=== PATIENT | male | born 1980 | race Hispanic/Latino ===

== ENCOUNTER 2021-02-20 21:55 | Observation (INO) | payer BC ==
[~2021-02-20] VITALS: Ht 177.8 cm; Wt 129.6 kg
[2021-02-21 00:45] LABS: BASOPHILS % (AUTO) 0.7 % (0.0-5.0); EOSINOPHILS % (AUTO) 2.2 % (0.0-8.0); HEMATOCRIT 46.1 % (42-54); LYMPHOCYTES % (AUTO) 30.7 % (21.0-51.0); MEAN CORPUSCULAR HEMOGLOBIN 29.3 pg (27.0-33.0); MEAN CORPUSCULAR HGB CONC 34.3 g/dL (32.0-36.0); MEAN CORPUSCULAR VOLUME 85.5 fL (79-99); MONOCYTES % (AUTO) 9.1 % (3.0-13.0); NEUTROPHILS % (AUTO) 56.9 % (40.0-77.0); PLATELET COUNT (AUTO) 249 K/uL (130-400); RED BLOOD CELL COUNT(AUTO) 5.39 MIL/uL (4.50-6.20); RED CELL DISTRIBUTION WIDTH 13.3 % (11.0-15.5); WHITE BLOOD COUNT (AUTO) 9.4 K/uL (4.8-10.8)
[2021-02-21 01:00] LABS: ALBUMIN 4.2 g/dL (3.5-5.0); TOTAL PROTEIN, SERUM 8.2 g/dL (6.0-8.3)
[2021-02-21 01:19] LABS: BILIRUBIN,URINE Negative (NEGATIVE); COLOR,URINE Yellow (YELLOW); GLUCOSE, URINE (UA) Negative (NEGATIVE); KETONES,URINE Negative (NEGATIVE); LEUKOCYTE ESTERASE ,URINE Negative (NEGATIVE); NITRATE,URINE Negative (NEGATIVE); OCCULT BLOOD,URINE Negative (NEGATIVE); PH,URINE 5.5 (5.0-8.0); PROTEIN,URINE Negative (NEGATIVE)
[2021-02-21 01:21] LABS: APPEARANCE,URINE CLEAR (CLEAR)
[2021-02-21 01:33] LABS: BILIRUBIN,TOTAL 0.7 mg/dL (0.2-1.0)
[2021-02-21 01:47] LABS: AMPHET/METH SCREEN,URINE NEGATIVE (NEGATIVE); BARBITURATE SCREEN, URINE NEGATIVE (NEGATIVE); BENZODIAZEPINES SCREEN,URINE NEGATIVE (NEGATIVE); CANNABINOID SCREEN,URINE POSITIVE (NEGATIVE); COCAINE SCREEN,URINE NEGATIVE (NEGATIVE); OPIATE SCREEN,URINE NEGATIVE (NEGATIVE); PHENCYCLIDINE SCREEN,URINE NEGATIVE (NEGATIVE)
[2021-02-21] MEDS ORDERED: ORPHENADRINE CITRATE 30 MG/ML ML IV ONE (02:00)
[2021-02-21] MEDS ORDERED: KETOROLAC 30MG VIAL (30MG/ML) IV ONE (02:00)
[2021-02-21 02:34] LABS: RAPID PLASMA REAGIN REACTIVE (NONREACTIVE)
[2021-02-21 02:35] LABS: RAPID PLASMA REAGIN TITER REACTIVE >1:16 (NONREACTIVE)
[2021-02-21] MEDS ORDERED: ASPIRIN 325MG TAB PO ONE (04:00)
[2021-02-21] MEDS ORDERED: GUAIFENESIN-DM 200/20 MG 10 ML PO PRN (04:30)
[2021-02-21] MEDS ORDERED: NITROGLYCERIN 0.4 MG SL TAB SL PRN (04:30)
[2021-02-21] MEDS ORDERED: DiphenhydrAMINE HCL 50 MG/ML VIAL IV PRN (04:30)
[2021-02-21] MEDS ORDERED: LACTULOSE 20 GM/30 ML UDCUP PO PRN (04:30)
[2021-02-21] MEDS ORDERED: MAG/ALUM/SIMETH 30 ML UDCUP PO PRN (04:30)
[2021-02-21] MEDS ORDERED: ACETAMINOPHEN 325 MG TAB PO PRN (04:30)
[2021-02-21] MEDS ORDERED: HYDRALAZINE 20MG/ML VIAL IV PRN (04:30)
[2021-02-21] MEDS ORDERED: MORPHINE 2 MG SYG IV PRN (04:30)
[2021-02-21] MEDS ORDERED: MORPHINE 4 MG SYG IV PRN (04:30)
[2021-02-21] MEDS ORDERED: ONDANSETRON 4MG INJ IV PRN (04:30)
[2021-02-21 04:46] LABS: CHOLESTEROL 179 mg/dL (<200); HDL CHOLESTEROL 41 mg/dL (29-71); LDL DIRECT 104 mg/dL (0-99); TRIGLYCERIDES 150 mg/dL (30-200)
[2021-02-21 04:47] LABS: HEMOGLOBIN A1C 5.7 % (4.0-6.0)
[2021-02-21] MEDS ORDERED: KETOROLAC 30MG VIAL (30MG/ML) IV SCH (07:25)
[2021-02-21] MEDS: DOXYCYCLINE HYCLATE 100 MG TABLET PO SCH ×3 (08:15→20:15)
[2021-02-21] MEDS: FAMOTIDINE 20MG VIAL IV SCH ×2 (09:39→20:16)
[2021-02-21] MEDS: ENOXAPARIN SODIUM 40 MG/0.4 ML SYRINGE SQ SCH (09:39)
[2021-02-21] MEDS ORDERED: KETOROLAC 30MG VIAL (30MG/ML) IV PRN (12:00)
[2021-02-21 15:30] VITALS: BP 132/88
[2021-02-21 20:00] VITALS: BP 134/80
[2021-02-21] MEDS: ATORVASTATIN 20 MG TABLET PO SCH (20:15)
[2021-02-21] MEDS: METOPROLOL TARTRATE 25 MG TAB PO SCH (20:19)
[2021-02-22] VITALS: BP 102/63
[2021-02-22 04:00] VITALS: BP 110/69
[2021-02-22 06:09] LABS: BASOPHILS % (AUTO) 0.7 % (0.0-5.0); EOSINOPHILS % (AUTO) 3.1 % (0.0-8.0); LYMPHOCYTES % (AUTO) 28.3 % (21.0-51.0); MEAN CORPUSCULAR HEMOGLOBIN 28.7 pg (27.0-33.0); MEAN CORPUSCULAR HGB CONC 33.2 g/dL (32.0-36.0); MEAN CORPUSCULAR VOLUME 86.6 fL (79-99); MONOCYTES % (AUTO) 11.7 % (3.0-13.0); NEUTROPHILS % (AUTO) 55.9 % (40.0-77.0); PLATELET COUNT (AUTO) 230 K/uL (130-400); RED BLOOD CELL COUNT(AUTO) 5.08 MIL/uL (4.50-6.20); RED CELL DISTRIBUTION WIDTH 13.2 % (11.0-15.5); WHITE BLOOD COUNT (AUTO) 7.5 K/uL (4.8-10.8)
[2021-02-22 06:45] LABS: ALBUMIN 3.4 g/dL (3.5-5.0); BILIRUBIN,TOTAL 0.8 mg/dL (0.2-1.0); CREATININE 1.1 mg/dL (0.5-1.5); POTASSIUM 3.8 mmol/L (3.5-5.1)
[2021-02-22 08:00] VITALS: BP 126/75
[2021-02-22] MEDS: ENOXAPARIN SODIUM 40 MG/0.4 ML SYRINGE SQ SCH (09:11)
[2021-02-22] MEDS: FAMOTIDINE 20MG VIAL IV SCH ×2 (09:12→21:13)
[2021-02-22] MEDS: DOXYCYCLINE HYCLATE 100 MG TABLET PO SCH ×2 (09:12→21:14)
[2021-02-22] MEDS: ASPIRIN 81 MG EC TAB PO SCH (09:12)
[2021-02-22] MEDS: METOPROLOL TARTRATE 25 MG TAB PO SCH ×2 (09:12→21:14)
[2021-02-22 11:59] VITALS: BP 132/92
[2021-02-22 16:00] VITALS: BP 123/67
[2021-02-22 20:04] VITALS: BP 138/87
[2021-02-22] MEDS: ATORVASTATIN 20 MG TABLET PO SCH (21:14)
[2021-02-23 00:36] VITALS: BP 116/64
[2021-02-23 04:00] VITALS: BP 124/78
[2021-02-23 08:00] VITALS: BP 125/76
[2021-02-23] MEDS: DOXYCYCLINE HYCLATE 100 MG TABLET PO SCH (08:45)
[2021-02-23] MEDS: METOPROLOL TARTRATE 25 MG TAB PO SCH (08:45)
[2021-02-23] MEDS: ASPIRIN 81 MG EC TAB PO SCH (08:45)
[2021-02-23] MEDS: FAMOTIDINE 20MG VIAL IV SCH (08:46)
[2021-02-23] MEDS: ENOXAPARIN SODIUM 40 MG/0.4 ML SYRINGE SQ SCH (08:48)
[2021-02-23 12:00] VITALS: BP 139/67
[2021-02-23 16:00] VITALS: BP 131/76
[2021-02-23] MEDS ORDERED: ATOR20TA65 PO (16:10)
[2021-02-23] MEDS ORDERED: METO25 PO (16:10)
[2021-02-23] MEDS ORDERED: AEC81 PO (16:10)
[2021-02-23] MEDS ORDERED: FAMO20TA8 PO (17:14)
== END 2021-02-23 18:51 | disposition home or self-care (01) ==
LOC: EDH 21:55 → INTOOBSV 02-21 04:09 → EDHIP 02-21 04:09 → 3BH 02-21 15:28
PROVIDERS: ADMIT Hospitalist; ATTEND Hospitalist
DX: R07.89 Other chest pain (principal); Z20.822 Contact with and (suspected) exposure to COVID-19; R79.89 Other specified abnormal findings of blood chemistry; M54.9 Dorsalgia, unspecified; A53.0 Latent syphilis, unspecified as early or late; M79.18 Myalgia, other site; E66.01 Morbid (severe) obesity due to excess calories; R53.1 Weakness; R53.81 Other malaise; F12.90 Cannabis use, unspecified, uncomplicated; Z87.891 Personal history of nicotine dependence; Z72.51 High risk heterosexual behavior; Z79.899 Other long term (current) drug therapy
CPT/HCPCS: 36415 ×2; 70450; 71045; 80053 ×2; 80061; 80305; 81003; 82550; 83036; 83880; 84484 ×4; 85025 ×2; 85378; 85651; 86140; 86592; 86701; 86780; 87390; 87635; 87804 ×2; 93005 ×2; 93306; 93356; 96372 ×3; 96374; 96375; 96376 ×3; 99285; G0378 ×3; J1650 ×3; J1885 ×2; J2360; J3490 ×5

== ENCOUNTER 2023-03-31 18:37 | Emergency (ER) | payer BC ==
[~2023-03-31] VITALS: Ht 177.8 cm; Wt 131.5 kg
[~2023-03-31 18:37] MED LIST: AEC81 PO; ATOR20TA65 PO; FAMO20TA8 PO; METO25 PO
[2023-03-31 20:13] LABS: BASOPHILS # (AUTO) 0.06 K/uL (0.00-0.20); BASOPHILS % (AUTO) 0.7 % (0.0-5.0); EOSINOPHILS # (AUTO) 0.16 K/uL (0.00-0.70); EOSINOPHILS % (AUTO) 1.8 % (0.0-8.0); HEMATOCRIT 43.6 % (42-54); IMMATURE GRANULOCYTE ABSOLUTE 0.02 K/uL (0-1); LYMPHOCYTES # (AUTO) 2.4 K/uL (1.0-4.8); LYMPHOCYTES % (AUTO) 27.4 % (21.0-51.0); MEAN CORPUSCULAR HEMOGLOBIN 29.6 pg (27.0-33.0); MEAN CORPUSCULAR HGB CONC 34.2 g/dL (32.0-36.0); MEAN CORPUSCULAR VOLUME 86.5 fL (79-99); MONOCYTES # (AUTO) 0.8 K/uL (0.1-1.0); NEUTROPHILS # (AUTO) 5.3 K/uL (1.8-7.7); NEUTROPHILS % (AUTO) 60.9 % (40.0-77.0); PLATELET COUNT (AUTO) 251 K/uL (130-400); RED BLOOD CELL COUNT(AUTO) 5.04 MIL/uL (4.50-6.20); RED CELL DISTRIBUTION WIDTH 13.2 % (11.0-15.5); WHITE BLOOD COUNT (AUTO) 8.7 K/uL (4.8-10.8)
[2023-03-31 20:24] LABS: INR <= 0.93 (0.85-1.15); PROTHROMBIN TIME 10.3 SEC (9.6-11.6)
[2023-03-31 20:25] LABS: POTASSIUM 3.5 mmol/L (3.5-5.1)
[2023-03-31 20:26] LABS: PARTIAL THROMBOPLASTIN TIME 29.5 SEC (26.3-35.5)
[2023-03-31 20:32] LABS: ALBUMIN 3.7 g/dL (3.5-5.0); BILIRUBIN,TOTAL 0.6 mg/dL (0.2-1.0); TOTAL PROTEIN, SERUM 7.9 g/dL (6.0-8.3)
[2023-03-31 20:37] LABS: B-TYPE NATRIURETIC PEPTIDE < 5 pg/mL (0-100)
[2023-03-31 20:43] LABS: D-DIMER 500 ng/mL (0-500)
[2023-03-31] MEDS ORDERED: CYCL-309 PO (21:29)
[2023-03-31] MEDS ORDERED: IBUPROFEN 600 MG TABLET ONE (21:29)
[2023-03-31] MEDS ORDERED: MELO10CA3 PO (21:29)
[2023-03-31 21:30] VITALS: PULSE 88
[2023-03-31 21:51] LABS: APPEARANCE,URINE CLEAR (CLEAR); BILIRUBIN,URINE NEGATIVE (NEGATIVE); COLOR,URINE LIGHT-YELLOW (YELLOW); GLUCOSE, URINE (UA) NEGATIVE (NEGATIVE); KETONES,URINE NEGATIVE (NEGATIVE); LEUKOCYTE ESTERASE ,URINE NEGATIVE Leu/uL (NEGATIVE); NITRATE,URINE NEGATIVE (NEGATIVE); OCCULT BLOOD,URINE NEGATIVE (NEGATIVE); PROTEIN,URINE NEGATIVE (NEGATIVE); UROBILINOGEN,URINE 0.2 mg/dL (0.2-1.0)
[2023-03-31 21:52] LABS: ADD UA MICROSCOPIC YES; MUCUS,URINE RARE LPF (None Seen); RBC,URINE 0-1 /HPF (0-1)
[2023-03-31 21:59] LABS: AMPHET/METH SCREEN,URINE NEGATIVE (NEGATIVE); BARBITURATE SCREEN, URINE NEGATIVE (NEGATIVE); BENZODIAZEPINES SCREEN,URINE NEGATIVE (NEGATIVE); CANNABINOID SCREEN,URINE POSITIVE (NEGATIVE); COCAINE SCREEN,URINE NEGATIVE (NEGATIVE); OPIATE SCREEN,URINE NEGATIVE (NEGATIVE); PHENCYCLIDINE SCREEN,URINE NEGATIVE (NEGATIVE)
[2023-03-31 22:45] VITALS: BP 133/72; RESP 18; O2SAT 99
== END 2023-03-31 22:37 | disposition home or self-care (01) ==
LOC: EDH 18:37
DX: R07.89 Other chest pain (principal); Z79.82 Long term (current) use of aspirin
CPT/HCPCS: 36415; 71045; 80053; 80305; 81001; 83880; 84484; 85025; 85378; 85610; 85730; 93005

== ENCOUNTER → 2023-04-16 | Outpatient (CLI) | payer BC ==
[~2023-04-16] MED LIST changes: +CYCL-309 PO; +MELO10CA3 PO
[2023-04-16 12:19] LABS: ALBUMIN 3.3 g/dL (3.5-5.0); BILIRUBIN,TOTAL 0.2 mg/dL (0.2-1.0); POTASSIUM 4.2 mmol/L (3.5-5.1); TOTAL PROTEIN, SERUM 7.2 g/dL (6.0-8.3)
== END | disposition home or self-care (01) ==
LOC: LAB 08:11
PROVIDERS: ATTEND Student in an Organized Health Care Education/Training Program
DX: R07.9 Chest pain, unspecified (principal); E78.5 Hyperlipidemia, unspecified
CPT/HCPCS: 36415; 80053; 80061

== ENCOUNTER → 2023-04-22 | Outpatient (CLI) | payer BC ==
[~2023-04-22] MED LIST changes: +IOHEXOL 350 MG/ML 100ML INFUS..BTL IV ONE; +METOPROLOL TARTRATE 1 MG/ML 5ML VIAL IV ONE
== END | disposition home or self-care (01) ==
LOC: RAH 10:34
PROVIDERS: ATTEND Student in an Organized Health Care Education/Training Program
DX: R07.9 Chest pain, unspecified (principal); M47.815 Spondylosis without myelopathy or radiculopathy, thoracolumbar region
CPT/HCPCS: 75574; J3490; Q9967

== ENCOUNTER 2024-01-11 03:59 | Emergency (ER) | payer BC ==
[~2024-01-11] VITALS: Ht 177.8 cm; Wt 135.6 kg
[~2024-01-11 03:59] MED LIST changes: -IOHEXOL 350 MG/ML 100ML INFUS..BTL IV ONE; -METOPROLOL TARTRATE 1 MG/ML 5ML VIAL IV ONE
[2024-01-11] MEDS: morPHINE 4 MG SYG IVP ONE (04:13)
[2024-01-11] MEDS: ASPIRIN 81MG CHEW TAB PO ONE (04:13)
[2024-01-11] MEDS: LACTATED RINGERS 1000ML 1,000 ML IV ONE (04:14)
[2024-01-11] MEDS: NITROGLYCERIN 1GM OINT 1 INCH/1GM TD ONE (04:14)
[2024-01-11 04:55] LABS: BASOPHILS # (AUTO) 0.05 K/uL (0.00-0.20); BASOPHILS % (AUTO) 0.5 % (0.0-5.0); EOSINOPHILS # (AUTO) 0.23 K/uL (0.00-0.70); EOSINOPHILS % (AUTO) 2.1 % (0.0-8.0); HEMATOCRIT 43.3 % (42-54); IMMATURE GRANULOCYTE ABSOLUTE 0.04 K/uL (0-1); LYMPHOCYTES # (AUTO) 2.2 K/uL (1.0-4.8); LYMPHOCYTES % (AUTO) 19.6 % (21.0-51.0); MEAN CORPUSCULAR HEMOGLOBIN 29.5 pg (27.0-33.0); MEAN CORPUSCULAR HGB CONC 33.9 g/dL (32.0-36.0); MEAN CORPUSCULAR VOLUME 86.8 fL (79-99); MONOCYTES # (AUTO) 0.9 K/uL (0.1-1.0); MONOCYTES % (AUTO) 7.8 % (3.0-13.0); NEUTROPHILS # (AUTO) 7.6 K/uL (1.8-7.7); NEUTROPHILS % (AUTO) 69.6 % (40.0-77.0); PLATELET COUNT (AUTO) 279 K/uL (130-400); RED BLOOD CELL COUNT(AUTO) 4.99 MIL/uL (4.50-6.20); RED CELL DISTRIBUTION WIDTH 13.1 % (11.0-15.5)
[2024-01-11 05:06] LABS: CREATININE 0.9 mg/dL (0.5-1.3); POTASSIUM 3.8 mmol/L (3.5-5.1)
[2024-01-11 05:15] LABS: B-TYPE NATRIURETIC PEPTIDE 13 pg/mL (0-100)
[2024-01-11 05:23] LABS: APPEARANCE,URINE CLEAR (CLEAR); BILIRUBIN,URINE NEGATIVE (NEGATIVE); COLOR,URINE COLORLESS (YELLOW); GLUCOSE, URINE (UA) NEGATIVE (NEGATIVE); KETONES,URINE NEGATIVE (NEGATIVE); LEUKOCYTE ESTERASE ,URINE NEGATIVE Leu/uL (NEGATIVE); NITRATE,URINE NEGATIVE (NEGATIVE); OCCULT BLOOD,URINE NEGATIVE (NEGATIVE); PH,URINE 6.5 (5.0-8.0); PROTEIN,URINE NEGATIVE (NEGATIVE); UROBILINOGEN,URINE 0.2 mg/dL (0.2-1.0)
[2024-01-11 05:24] LABS: ADD UA MICROSCOPIC NO
[2024-01-11] MEDS: MAG/ALUM/SIMETH 30 ML UDCUP PO ONE (06:12)
[2024-01-11] MEDS: DICYCLOMINE HCL 10 MG/5 ML ML PO ONE (06:12)
[2024-01-11] MEDS: LIDOCAINE HCL 2% VISCOUS 15 ML UDCUP PO ONE (06:12)
[2024-01-11] MEDS ORDERED: SUCR1TAB PO (06:51)
[2024-01-11] MEDS ORDERED: PANT40TA55 PO (06:51)
--- NOTE | 2024-01-11 06:51 | ERN ---
General Chief Complaint: Chest Pain Stated Complaint: CHEST PAIN Time Seen by MD: 04:01 History of Present Illness Initial Comments Mr. Franklin is a very pleasant 43-year-old male significant past medical history of hyperlipidemia essential hypertension and morbid obesity who presents today with a chief complaint of chest pain. Patient reports that his chest pain is primarily when he he is lying flat. He reports chest pain primarily at night. Reports chest pain radiates to his left pack. He also has a associated increased burping and dry raspy voice. Patient does not take any reflux medicine Allergies: Coded Allergies: No Known Drug Allergies (Unverified Allergy, Unknown, 02/20/21) Home Meds Active Scripts Cyclobenzaprine HCl (Cyclobenzaprine HCl) 10 Mg Tablet, 10 MG PO TIDP PRN for PAIN, #30 TAB Prov:ASHA AVERY MD 03/31/23 Meloxicam, Submicronized (Meloxicam) 10 Mg Capsule, 10 MG PO DAILY, #30 CAP Prov:ASHA AVERY MD 03/31/23 Famotidine (Famotidine) 20 Mg Tablet, 20 MG PO DAILY, #30 TAB Prov:GHULAM ALVA I [facility] 02/23/21 Metoprolol Tartrate (Lopressor) 25 Mg Tab, 12.5 MG PO BID, #60 TAB Prov:GHULAM ALVA I [facility] 02/23/21 Atorvastatin Calcium (Atorvastatin Calcium) 20 Mg Tablet, 20 MG PO HS, #60 TAB Prov:GHULAM ALVA I [facility] 02/23/21 Aspirin (ASPIRIN 81 MG ECTAB) 81 Mg Ectab, 81 MG PO DAILY, #14 TAB.EC Prov:GHULAM ALVA I [facility] 02/23/21 Past Medical History Past Medical History: Depression, Hypertension, Other Medical History Other: SYPHILIS Past Surgical History: None Social History Social History: Negative ROS Dictation Constitutional: Negative for fever,chills, and weight loss Eyes: Negative for injury, pain,redness, and discharge ENT: Negative for injury,pain or swelling Cardiovascular: Negative for chest pain, palpitations, and edema Respiratory: Negative for shortness of breath, cough, and wheezing, Abdomen/GI: Positive for upper abdominal pain, nausea, changes in voice Back: Negative for injury and pain : Negative for injury, bleeding and discharge MS/Extremity: Negative for injury and deformity Skin: Negative for rash, and discoloration Neuro: Negative for headache, weakness, numbness, tingling, and seizure Psych: Negative for suicide ideation, homicidal ideation, and hallucinations Physical Exam Physical Exam Dictation General: awake, alert Head/Face: Normocephalic Eyes: PERRL, EOMI, v Neck: Trachea midline, supple, no nuchal rigidity Cardiovascular: RRR, normal S1/S2, No MRGs, no JVD Respiratory: CTAB, no respiratory distress, No rales or wheezes Abdomen: Pain in the epigastric region Skin: Warm, dry, normal turgor, no rash MS/Extremity: Pulses equal, no cyanosis Neuro: COAx4, GCS 15, strength 5/5, CN 2-12 intact Results Laboratory and Microbiology Lab and Micro Result Laboratory Tests Test 01/11/24 04:20 01/11/24 05:14 White Blood Count 11.0 K/uL (4.8-10.8) H Red Blood Count 4.99 MIL/uL (4.50-6.20) Hemoglobin 14.7 g/dL (14.0-18.0) Hematocrit 43.3 % (42-54) Mean Corpuscular Volume 86.8 fL (79-99) Mean Corpuscular Hemoglobin 29.5 pg (27.0-33.0) Mean Corpuscular Hemoglobin Concent 33.9 g/dL (32.0-36.0) Red Cell Distribution Width 13.1 % (11.0-15.5) Platelet Count 279 K/uL (130-400) Mean Platelet Volume 9.7 fL (7.5-10.5) Immature Granulocyte % (Auto) 0.4 % (0-1) Neutrophils (%) (Auto) 69.6 % (40.0-77.0) Lymphocytes (%) (Auto) 19.6 % (21.0-51.0) L Monocytes (%) (Auto) 7.8 % (3.0-13.0) Eosinophils (%) (Auto) 2.1 % (0.0-8.0) Basophils (%) (Auto) 0.5 % (0.0-5.0) Neutrophils # (Auto) 7.6 K/uL (1.8-7.7) Lymphocytes # (Auto) 2.2 K/uL (1.0-4.8) Monocytes # (Auto) 0.9 K/uL (0.1-1.0) Eosinophils # (Auto) 0.23 K/uL (0.00-0.70) Basophils # (Auto) 0.05 K/uL (0.00-0.20) Absolute Immature Granulocyte (auto 0.04 K/uL (0-1) Nucleated Red Blood Cells 0.0 % (0.0-0.19) Urine Color COLORLESS (YELLOW) Urine Appearance CLEAR (CLEAR) Urine pH 6.5 (5.0-8.0) Urine Specific [place] 1.007 (1.001-1.031) Urine Protein NEGATIVE mg/dL (NEGATIVE) Urine Glucose (UA) NEGATIVE mg/dL (NEGATIVE) Urine Ketones NEGATIVE mg/dL (NEGATIVE) Urine Occult Blood NEGATIVE (NEGATIVE) Urine Nitrate NEGATIVE (NEGATIVE) Urine Bilirubin NEGATIVE mg/dL (NEGATIVE) Urine Urobilinogen 0.2 mg/dL (0.2-1.0) Urine Leukocyte Esterase NEGATIVE [place]/uL Sodium Level 135 mmol/L (136-145) L Potassium Level 3.8 mmol/L (3.5-5.1) Chloride Level 101 mmol/L (101-111) Carbon Dioxide Level 28 mmol/L (21-32) Blood Urea Nitrogen 13 mg/dL (7-18) Creatinine 0.9 mg/dL (0.5-1.3) Glomerular Filtration Rate Calc 110 mL/min (>90) Random Glucose 97 mg/dL (70-105) Total Calcium 9.6 mg/dL (8.5-10.1) Magnesium Level 2.00 mg/dL (1.80-2.40) Troponin I High Sensitivity 64 ng/L (4-75) B-Type Natriuretic Peptide 13 pg/mL (0-100) Troponin I < 0.05 ng/mL (0.00-0.05) MDM Patient's imaging and labs are unremarkable for any cardiac related chest pain. Patient does appear to have some reflux disease that has improved significantly with GI cocktail. Patient will be given Carafate and Protonix to help with the his reflux on an ongoing basis. MDM: Differential diagnosis: Noncardiac chest pain Rationale: Tests considered and ordered secondary to shared decision making include: Previous outside records reviewed: Old ER visits. Risk of complication and/or morbidity or mortality of patient management: None Medications-Per medication reconciliation Need for hospitalization: Patient does not meet criteria for hospitalization. Need for emergency major/minor surgery: No There are no social concerns with this patient. Prescription drug management Prescriptions will include symptomatic care Patient's prior external medical records from other ER visits were reviewed by me as indicated. Prior testing and results from previous visits were reviewed. Prior tests were taken into account with medical decision making and resource utilization, independent historian/historians were used to obtain complete medical history. I independently interpreted the test that were performed, results were reviewed by me and considered findings on radiology if ordered. Medical management and examination interpretation discussions were had by me with other qualified healthcare professionals as indicated for the patient's care. ED Course Orders Procedure Category Date Status Time Cbc With Differential LAB 01/11/24 Complete 04:01 B-Type Natriuretic LAB 01/11/24 Complete Peptide 04:01 Chest 1vw RAD 01/11/24 Taken 04:01 12 Lead Ekg Tracing- EKG 01/11/24 Logged Technical 04:01 Lactated Ringers PHA 01/11/24 Complete 1000ml (Lactated 04:30 Aspirin 81mg Chew Tab PHA 01/11/24 Complete (Aspirin 81mg Chew 04:30 Nitroglycerin 1gm PHA 01/11/24 Complete Oint (Nitroglycerin 1g 04:30 Morphine 4mg Syg PHA 01/11/24 Complete (Morphine 4mg Syg) 04:30 Magnesium LAB 01/11/24 Complete 04:01 Troponin I High LAB 01/11/24 Complete Sensitivity 04:01 Troponin Poc Order LAB 01/11/24 Complete Only 04:01 Bedside Troponin-I LAB.ER 01/11/24 In Process (Poc) 04:01 Basic Metabolic Panel LAB 01/11/24 Complete 04:01 Lidocaine Hcl 2% PHA 01/11/24 Complete Viscous (Lidocaine Hcl 05:00 Mag/Alum/Simeth 30ml PHA 01/11/24 Complete (Maalox Plus 30ml) 05:00 Dicyclomine Hcl PHA 01/11/24 Complete (Bentyl 10mg/5ml 05:00 Urinalysis Profile LAB 01/11/24 Complete 05:06 Current Medications Medications (Trade) Dose Ordered Sig/Paresh Route PRN Reason Start Time Stop Time Status Last Admin Dose Admin Al Hydroxide/Mg Hydroxide (MAALox PLUS 30ML) 30 ml ONCE ONCE PO 01/11/24 05:00 01/11/24 05:02 DC 01/11/24 06:12 Aspirin (Aspirin 81mg Chew Tab) 81 mg ONCE ONCE PO 01/11/24 04:30 01/11/24 04:31 DC 01/11/24 04:13 Dicyclomine HCl (Bentyl 10mg/5ml Syrup) 10 mg ONCE ONCE PO 01/11/24 05:00 01/11/24 05:02 DC 01/11/24 06:12 Lactated Ringer's 1,000 ml @ 0 mls/hr ONCE ONCE IV 01/11/24 04:30 01/11/24 04:31 DC 01/11/24 04:14 Lidocaine HCl (Lidocaine HCl 2% Viscous) 10 ml ONCE ONCE PO 01/11/24 05:00 01/11/24 05:02 DC 01/11/24 06:12 Morphine Sulfate (morPHINE 4MG SYG) 4 mg ONCE ONCE IVP 01/11/24 04:30 01/11/24 04:31 DC 01/11/24 04:13 Nitroglycerin (Nitroglycerin 1gm Oint) 1 inch ONCE ONCE TD 01/11/24 04:30 01/11/24 04:31 DC 01/11/24 04:14 Vital Signs Date Time Temp Pulse Resp B/P (MAP) Pulse Ox O2 Delivery O2 Flow Rate FiO2 01/11/24 06:00 98.4 77 18 125/75 95 Room Air* 0 21 01/11/24 04:52 98.4 73 18 133/83 100 Room Air* 0 21 01/11/24 04:04 97.7 73 16 136/90 95 Room Air 0 DX & DISP Disposition: Discharge Departure Impression: Primary Impression: GERD (gastroesophageal reflux disease) Additional Impression: Non-cardiac chest pain Condition: Stable Scripts Pantoprazole Sodium (Protonix) 40 Mg Ectab 1 TAB PO DAILY for 30 Days, #30 TAB 2 Refills Prov: RU GALLAGHER MD 01/11/24 Sucralfate (Carafate) 1 Gram Tablet 1 TAB PO QID for 30 Days, #120 TAB 0 Refills Prov: RU GALLAGHER MD 01/11/24 Additional Instructions: Please follow up with your primary care physician in the next 1-7 days for continuity of care. Please ask for referral to [facility]. Please avoid spicy foods. Please take your medications as prescribed for potential reflux. Referrals: MIGUEL ROJAS (PCP) RU GALLAGHER MD Jan 11, 2024 06:51
--- NOTE | 2024-01-11 06:51 | EKG ---
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
[2024-01-11 07:16] VITALS: BP 141/82; PULSE 77; RESP 18; TEMP 98.4; O2SAT 95
--- NOTE | 2024-01-11 08:23 | HMCIMG ---
CHEST 1VW HISTORY: Shortness of breath COMPARISON: 03/31/2023 FINDINGS: A frontal projection of the chest was obtained. No acute pulmonary infiltrates is seen. The heart is normal in size. Prominent interstitial markings are seen. No evidence of aortic calcification is seen. IMPRESSION: 1. No acute pulmonary infiltrate is seen.
== END 2024-01-11 07:24 | disposition home or self-care (01) ==
LOC: EDH 03:59
DX: K21.9 Gastro-esophageal reflux disease without esophagitis (principal); R07.89 Other chest pain; E66.01 Morbid (severe) obesity due to excess calories; I10 Essential (primary) hypertension; Z79.1 Long term (current) use of non-steroidal anti-inflammatories (NSAID); Z79.82 Long term (current) use of aspirin
CPT/HCPCS: 99284; 96374; 71045; 83735; 84484 ×2; 80048; 83880; 85025; 81003; 36415; 93005; J7120; J2270

== ENCOUNTER 2024-02-07 18:20 | Emergency (ER) | payer BC ==
[~2024-02-07] VITALS: Ht 177.8 cm; Wt 131.5 kg
[~2024-02-07 18:20] MED LIST changes: +PANT40TA55 PO; +SUCR1TAB PO
[2024-02-07 18:23] VITALS: BP 153/107; PULSE 93; RESP 16; TEMP 98
--- NOTE | 2024-02-07 18:49 | ERN ---
ED Note History of Present Illness Stated Complaint: CP Chief Complaint: Chest Pain Time Seen by MD: 18:27 Time Seen by Midlevel: 18:27 Dictation: The Patient is a 43-year-old male with a history of rheumatoid arthritis, anxiety, hypertension who presents to the emergency department with complaints of chest pressure onset two days ago. Patient reports he has been having these symptoms on and off for a year now. Reports pain is worse when lying down or bending down and with movement. Patient denies any chest trauma. Denies any nausea or vomiting, abdominal pain. Patient also reported to having sensation of numbness to the mouth today. Denies any alcohol use or drug use Allergies: Coded Allergies: No Known Drug Allergies (Unverified Allergy, Unknown, 02/20/21) Home Meds Active Scripts Pantoprazole Sodium (Protonix) 40 Mg Ectab, 1 TAB PO DAILY for 30 Days, #30 TAB 2 Refills Prov:RU GALLAGHER MD 01/11/24 Sucralfate (Carafate) 1 Gram Tablet, 1 TAB PO QID for 30 Days, #120 TAB 0 Refills Prov:RU GALLAGHER MD 01/11/24 Cyclobenzaprine HCl (Cyclobenzaprine HCl) 10 Mg Tablet, 10 MG PO TIDP PRN for PAIN, #30 TAB Prov:ASHA AVERY MD 03/31/23 Meloxicam, Submicronized (Meloxicam) 10 Mg Capsule, 10 MG PO DAILY, #30 CAP Prov:ASHA AVERY MD 03/31/23 Famotidine (Famotidine) 20 Mg Tablet, 20 MG PO DAILY, #30 TAB Prov:GHULAM ALVAP 02/23/21 Metoprolol Tartrate (Lopressor) 25 Mg Tab, 12.5 MG PO BID, #60 TAB Prov:GHULAM ALVAP 02/23/21 Atorvastatin Calcium (Atorvastatin Calcium) 20 Mg Tablet, 20 MG PO HS, #60 TAB Prov:GHULAM ALVAP 02/23/21 Aspirin (ASPIRIN 81 MG ECTAB) 81 Mg Ectab, 81 MG PO DAILY, #14 TAB.EC Prov:GHULAM ALVAP 02/23/21 Past Medical History Past Medical History: Anxiety, Depression, Hypertension, Other Additional Past Medical Hx: SYPHILIS Surgical History: None Social History: Negative RN Note Reviewed/Agreed w/PFSH: Yes Review of System Dictation Constitutional: Negative for fever,chills, and weight loss Eyes: Negative for injury, pain,redness, and discharge ENT: Negative for injury,pain or swelling Cardiovascular: Negative for palpitations, and edema positive for chest pain Respiratory: Negative for cough, and wheezing, positive for shortness of breath Abdomen/GI: Negative for abdominal pain, nausea, vomiting, diarrhea, and consti pation Back: Negative for injury and pain : Negative for injury, bleeding and discharge MS/Extremity: Negative for injury and deformity Skin: Negative for rash, and discoloration Neuro: Negative for headache, weakness, numbness, tingling, and seizure Psych: Negative for suicide ideation, homicidal ideation, and hallucinations Initial Vital Sign VS Vital Signs Date Time Temp Pulse Resp B/P (MAP) Pulse Ox O2 Delivery O2 Flow Rate FiO2 02/07/24 18:23 98.1 93 16 153/107 98 Room Air 0 Physical Exam Dictation Vital Signs reviewed General Appearance: Alert, oriented x 3, no acute distress, well developed, nourished. Head and Face: non-traumatic. Eyes: PERRL, pink conjunctivas, eyelid no trauma, anterior chamber with arcus senilis. Ears: Pinnas intact and no signs of trauma or erythema ear canals clear and no discharge TM no erythema Nose: No discharge, no bleeding. Oropharynx: Mouth normal, tongue pink. pharynx clear,no erythema, tonsils no exudates, no abscesses noted, mucous membrane moist Neck: Supple, non-tender, no thyromegaly, no masses, no JVD, no bruits Breast:Deferred Chest: Tenderness with palpation, no crepitus, no paradoxical movement, no retractions Lungs:Clear, well-ventilated, symmetric, no rales, no wheezing, no rhonchi, no stridor, good breath sounds bilaterally Heart: Regular rate, regular rhythm, no murmur, no gallops Vascular: no peripheral edema, Abdomen: Soft, positive bowel sounds, nondistended, no guarding, nontender, no rebound, no masses no hepatomegaly, no splenomegaly, no Saavedra's sign, no hernias. Rectal: Deferred Genital: Deferred Neurological: Normal speech, motor function intact, sensory function intact , no slurred speech, no facial droop, upper extremities equal and strength, lower extremities equal and strength Musculoskeletal: Neck nontender, full range of motion, back nontender, full range of motion, Extremities: nontender, full range of motion Skin: Color pink, dry, no turgor, no rash, no lacerations, no abrasions, no contusions. Lymphatic: Deferred Results (Laboratory/Radiology) Laboratory/Radiology Laboratory Tests Test 02/07/24 19:07 02/07/24 19:28 02/07/24 20:51 02/07/24 22:54 White Blood Count 9.5 K/uL (4.8-10.8) Red Blood Count 4.99 MIL/uL (4.50-6.20) Hemoglobin 14.9 g/dL (14.0-18.0) Hematocrit 44.2 % (42-54) Mean Corpuscular Volume 88.6 fL (79-99) Mean Corpuscular Hemoglobin 29.9 pg (27.0-33.0) Mean Corpuscular Hemoglobin Concent 33.7 g/dL (32.0-36.0) Red Cell Distribution Width 14.0 % (11.0-15.5) Platelet Count 256 K/uL (130-400) Mean Platelet Volume 9.7 fL (7.5-10.5) Immature Granulocyte % (Auto) 0.3 % (0-1) Neutrophils (%) (Auto) 64.0 % (40.0-77.0) Lymphocytes (%) (Auto) 25.1 % (21.0-51.0) Monocytes (%) (Auto) 7.4 % (3.0-13.0) Eosinophils (%) (Auto) 2.6 % (0.0-8.0) Basophils (%) (Auto) 0.6 % (0.0-5.0) Neutrophils # (Auto) 6.1 K/uL (1.8-7.7) Lymphocytes # (Auto) 2.4 K/uL (1.0-4.8) Monocytes # (Auto) 0.7 K/uL (0.1-1.0) Eosinophils # (Auto) 0.25 K/uL (0.00-0.70) Basophils # (Auto) 0.06 K/uL (0.00-0.20) Absolute Immature Granulocyte (auto 0.03 K/uL (0-1) Nucleated Red Blood Cells 0.0 % (0.0-0.19) Sodium Level 139 mmol/L (136-145) Potassium Level 3.8 mmol/L (3.5-5.1) Chloride Level 102 mmol/L (101-111) Carbon Dioxide Level 32 mmol/L (21-32) Blood Urea Nitrogen 16 mg/dL (7-18) Creatinine 1.1 mg/dL (0.5-1.3) Glomerular Filtration Rate Calc 86 mL/min (>90) Random Glucose 94 mg/dL (70-105) Total Calcium 9.3 mg/dL (8.5-10.1) Total Bilirubin 0.3 mg/dL (0.2-1.0) Direct Bilirubin 0.1 mg/dL (0.0-0.3) Aspartate Amino Transf (AST/SGOT) 16 U/L (10-37) Alanine Aminotransferase (ALT/SGPT) 27 U/L (12-78) Alkaline Phosphatase 102 U/L (50-136) Total Creatine Kinase 146 U/L (21-232) Troponin I High Sensitivity 41 ng/L (4-75) 41 ng/L (4-75) B-Type Natriuretic Peptide 16 pg/mL (0-100) Total Protein 8.0 g/dL (6.0-8.3) Albumin 3.6 g/dL (3.5-5.0) Lipase 50 U/L (16-77) Troponin I < 0.05 ng/mL (0.00-0.05) Urine Color LIGHT-YELLOW (YELLOW) Urine Appearance CLEAR (CLEAR) Urine pH 6.5 (5.0-8.0) Urine Specific [place] 1.018 (1.001-1.031) Urine Protein NEGATIVE mg/dL (NEGATIVE) Urine Glucose (UA) NEGATIVE mg/dL (NEGATIVE) Urine Ketones NEGATIVE mg/dL (NEGATIVE) Urine Occult Blood NEGATIVE (NEGATIVE) Urine Nitrate NEGATIVE (NEGATIVE) Urine Bilirubin NEGATIVE mg/dL (NEGATIVE) Urine Urobilinogen 0.2 mg/dL (0.2-1.0) Urine Leukocyte Esterase NEGATIVE Chelsey/uL Urine Opiates Screen NEGATIVE (NEGATIVE) Urine Barbiturates Screen NEGATIVE (NEGATIVE) Urine Phencyclidine Screen NEGATIVE (NEGATIVE) Urine Amphetamines Screen NEGATIVE (NEGATIVE) Urine Benzodiazepines Screen NEGATIVE (NEGATIVE) Urine Cocaine Screen NEGATIVE (NEGATIVE) Urine Marijuana (THC) Screen NEGATIVE (NEGATIVE) REASON: CHEST PAIN ORDERING PHYSICIAN: DAHIANA VASQUEZ PSYCHIATRIC NURSING AIDE PROCEDURE: CXR1VW - CHEST 1VW CHEST 1VW HISTORY: Chest pain COMPARISON: January 11, 2024 FINDINGS: A frontal projection of the chest was obtained. No acute pulmonary infiltrates is seen. The heart is borderline enlarged. Prominent interstitial markings are seen. Degenerative changes are seen. No evidence of aortic calcification is seen. IMPRESSION: 1. No acute pulmonary infiltrate is seen. Labs Reviewed?: Yes EKG: (+) NSR, (+) VA (177), (+) unchanged EKG Comment: EKG 02/07/2024 ventricular rate 92, sinus rhythm, regular rate and rhythm, early repolarization pattern, no STEMI, compared to EKG from 01/11/2024 no changes ED Course ED Course Orders Procedure Category Date Status Time Vital Signs Per CPOE 02/07/24 Transmitted Routine 18:28 B-Type Natriuretic LAB 02/07/24 Complete Peptide 18:28 Chest 1vw RAD 02/07/24 Resulted 18:28 12 Lead Ekg Tracing- EKG 02/07/24 Logged Technical 18:28 Oxygen By Nc/Pulse Ox CPOE 02/07/24 Transmitted 18:28 Maintain Iv CPOE 02/07/24 Transmitted 18:28 Iv Insertion CPOE 02/07/24 Transmitted 18:28 Cardiac Monitoring CPOE 02/07/24 Transmitted 18:28 Pulse Oximetry With CPOE 02/07/24 Transmitted Vs And Prn 18:28 Cbc With Differential LAB 02/07/24 Complete 18:28 Activity: Br W/Brp CPOE 02/07/24 Transmitted With Assist 18:28 Creatine Kinase, Total LAB 02/07/24 Complete 18:28 Urinalysis Profile LAB 02/07/24 Complete 18:28 Troponin Poc Order LAB 02/07/24 Complete Only 18:28 Bedside Troponin-I LAB.ER 02/07/24 Complete (Poc) 18:28 Basic Metabolic Panel LAB 02/07/24 Complete 18:28 Aspirin 325mg Tab PHA 02/07/24 Complete (Aspirin 325mg Tab) 19:00 Ketorolac PHA 02/07/24 Complete Tromethamine 30mg/Ml 19:00 Troponin I High LAB 02/07/24 Complete Sensitivity 18:36 Pantoprazole 40mg Inj PHA 02/07/24 Complete (Protonix 40mg Inj 19:30 Hepatic Function Panel LAB 02/07/24 Complete 19:07 Lipase LAB 02/07/24 Complete 19:07 Troponin I High LAB 02/07/24 Complete Sensitivity 19:56 Drug Screen Urine LAB 02/07/24 Complete 18:28 Current Medications Medications (Trade) Dose Ordered Sig/Paresh Route PRN Reason Start Time Stop Time Status Last Admin Dose Admin Aspirin (Aspirin 325mg Tab) 325 mg ONCE ONCE PO 02/07/24 19:00 02/07/24 19:01 DC 02/07/24 22:46 Ketorolac Tromethamine (toRADol) 30 mg ONCE ONCE IVP 02/07/24 19:00 02/07/24 19:01 DC 02/07/24 22:46 Pantoprazole Sodium (PROTonix 40MG INJ) 40 mg ONCE ONCE IVP 02/07/24 19:30 02/07/24 19:31 DC 02/07/24 22:46 Vital Signs Date Time Temp Pulse Resp B/P (MAP) Pulse Ox O2 Delivery O2 Flow Rate FiO2 02/07/24 18:23 98.1 93 16 153/107 98 Room Air 0 HEART Score Response (Comments) Value History: Low suspicion (0) 0 EKG: Repolarization changes 1 Age: < 45yrs (0) 0 Risk Factors: 1-2 risk factors (+1) 1 Initial Troponin: Normal limit (0) 0 Total 2 Medical Decision Making MDM The Patient is a 43-year-old male with a history of rheumatoid arthritis, anxiety, hypertension who presents to the emergency department with complaints of chest pressure onset two days ago. Patient reports he has been having these symptoms on and off for a year now. Reports pain is worse when lying down or bending down and with movement. Patient denies any chest trauma. Denies any nausea or vomiting, abdominal pain. Patient also reported to having sensation of numbness to the mouth today. Denies any alcohol use or drug use CBC showed no leukocytosis, no anemia, chemistry showed normal lipase, no electrolyte imbalance, normal liver function, GFR of 86, negative troponin x2, EKG similar to previous EKG. Chest x-ray unremarkable. Patient's pain with palpation. Patient had a coronary CT angiogram done in April of this year which showed no CAD. Patient with low risk for any cardiac event. Labs and imaging discussed with the patient. Patient will be discharged to follow up with PCP. Differential diagnosis: ACS, costochondritis, pneumonia, pneumothorax, gastritis Need for hospitalization: Patient does not meet criteria for hospitalization. There are no social concerns with this patient. DX & DISP Disposition: Discharge Departure Impression: Primary Impression: Chest wall pain Condition: Stable Additional Instructions: Please follow up with your primary doctor in 1-2 days. If symptoms worsen please return to ER. FOLLOW-UP WITH PRIMARY CARE PROVIDER IN 1 TO 2 DAYS. TAKE MEDICATIONS DIRECTED HERE IN THE EMERGENCY ROOM. OKAY TO CONTINUE HOME MEDICATIONS UNLESS OTHERWISE DISCUSSED DURING YOUR VISIT IN THE EMERGENCY ROOM TODAY. RETURN TO YOUR NEAREST EMERGENCY ROOM IF SYMPTOMS WORSEN OR IF THERE IS NO IMPROVEMENT. CALL 911 IF YOU NEED IMMEDIATE ASSISTANCE. TAKE TYLENOL OR MOTRIN [id number] NEEDED AND IF NO CONTRAINDICATIONS ARE PRESENT. INCREASE ORAL HYDRATION. A WOUND CULTURE OR URINE CULTURE WAS ORDERED HERE IN THE E MERGENCY ROOM DEPARTMENT PLEASE FOLLOW-UP WITH PRIMARY CARE PROVIDER AND ADVISE THEM TO GET REPEAT PORTS FROM OUR FACILITY. IF YOU HAD ANY BRENDA WRAP/SPLINTS THAT WERE APPLIED HERE, PLEASE DO NOT REMOVE THEM UNTIL YOU SEE YOUR PRIMARY CARE OR SPECIALTY. Referrals: MIGUEL ROJAS (PCP) Time of Disposition: 23:39 I have reviewed the case, and I agree with, Diagnosis and Plan DAHIANA VASQUEZ Feb 07, 2024 18:49
[2024-02-07 19:14] LABS: BASOPHILS # (AUTO) 0.06 K/uL (0.00-0.20); BASOPHILS % (AUTO) 0.6 % (0.0-5.0); EOSINOPHILS # (AUTO) 0.25 K/uL (0.00-0.70); EOSINOPHILS % (AUTO) 2.6 % (0.0-8.0); HEMATOCRIT 44.2 % (42-54); IMMATURE GRANULOCYTE ABSOLUTE 0.03 K/uL (0-1); LYMPHOCYTES # (AUTO) 2.4 K/uL (1.0-4.8); LYMPHOCYTES % (AUTO) 25.1 % (21.0-51.0); MEAN CORPUSCULAR HEMOGLOBIN 29.9 pg (27.0-33.0); MEAN CORPUSCULAR HGB CONC 33.7 g/dL (32.0-36.0); MEAN CORPUSCULAR VOLUME 88.6 fL (79-99); MONOCYTES # (AUTO) 0.7 K/uL (0.1-1.0); MONOCYTES % (AUTO) 7.4 % (3.0-13.0); NEUTROPHILS # (AUTO) 6.1 K/uL (1.8-7.7); PLATELET COUNT (AUTO) 256 K/uL (130-400); RED BLOOD CELL COUNT(AUTO) 4.99 MIL/uL (4.50-6.20); WHITE BLOOD COUNT (AUTO) 9.5 K/uL (4.8-10.8)
[2024-02-07 19:22] LABS: CREATININE 1.1 mg/dL (0.5-1.3); POTASSIUM 3.8 mmol/L (3.5-5.1)
[2024-02-07 19:31] LABS: ALBUMIN 3.6 g/dL (3.5-5.0); BILIRUBIN,DIRECT 0.1 mg/dL (0.0-0.3); BILIRUBIN,TOTAL 0.3 mg/dL (0.2-1.0)
--- NOTE | 2024-02-07 19:36 | HMCIMG ---
CHEST 1VW HISTORY: Chest pain COMPARISON: January 11, 2024 FINDINGS: A frontal projection of the chest was obtained. No acute pulmonary infiltrates is seen. The heart is borderline enlarged. Prominent interstitial markings are seen. Degenerative changes are seen. No evidence of aortic calcification is seen. IMPRESSION: 1. No acute pulmonary infiltrate is seen.
[2024-02-07 19:38] LABS: B-TYPE NATRIURETIC PEPTIDE 16 pg/mL (0-100)
[2024-02-07] MEDS: PANTOPrazole 40 MG/VIAL IVP ONE (22:46)
[2024-02-07] MEDS: ketOROlac 30MG VIAL (30MG/ML) IVP ONE (22:46)
[2024-02-07] MEDS: ASPIRIN 325MG TAB PO ONE (22:46)
[2024-02-07 23:09] LABS: APPEARANCE,URINE CLEAR (CLEAR); BILIRUBIN,URINE NEGATIVE (NEGATIVE); COLOR,URINE LIGHT-YELLOW (YELLOW); GLUCOSE, URINE (UA) NEGATIVE (NEGATIVE); KETONES,URINE NEGATIVE (NEGATIVE); LEUKOCYTE ESTERASE ,URINE NEGATIVE Leu/uL (NEGATIVE); NITRATE,URINE NEGATIVE (NEGATIVE); OCCULT BLOOD,URINE NEGATIVE (NEGATIVE); PH,URINE 6.5 (5.0-8.0); PROTEIN,URINE NEGATIVE (NEGATIVE); UROBILINOGEN,URINE 0.2 mg/dL (0.2-1.0)
[2024-02-07 23:11] LABS: ADD UA MICROSCOPIC NO
[2024-02-07 23:15] LABS: AMPHET/METH SCREEN,URINE NEGATIVE (NEGATIVE); BARBITURATE SCREEN, URINE NEGATIVE (NEGATIVE); BENZODIAZEPINES SCREEN,URINE NEGATIVE (NEGATIVE); CANNABINOID SCREEN,URINE NEGATIVE (NEGATIVE); COCAINE SCREEN,URINE NEGATIVE (NEGATIVE); OPIATE SCREEN,URINE NEGATIVE (NEGATIVE); PHENCYCLIDINE SCREEN,URINE NEGATIVE (NEGATIVE)
--- NOTE | 2024-02-08 06:29 | EKG ---
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
== END 2024-02-07 23:48 | disposition home or self-care (01) ==
LOC: EDH 18:20
DX: R07.89 Other chest pain (principal); I10 Essential (primary) hypertension; Z79.1 Long term (current) use of non-steroidal anti-inflammatories (NSAID); Z79.82 Long term (current) use of aspirin; Z79.899 Other long term (current) drug therapy
CPT/HCPCS: 99284; 96374; 71045; 96375; 82550; 80076; 84484 ×3; 80048; 83880; 80305; 83690; 85025; 36415; 93005; 81003; J1885; J2470

== ENCOUNTER 2024-10-03 20:47 | Emergency (ER) | payer BC ==
[~2024-10-03] VITALS: Ht 180.3 cm; Wt 152.0 kg
[2024-10-03] MEDS: 0.9%NACL 1000ML 1,000 ML IV ONE (21:25)
--- NOTE | 2024-10-03 21:28 | ERN ---
ED Note History of Present Illness Stated Complaint: C/O CP WITH SOB X 2 DAYS Chief Complaint: Chest Pain Time Seen by MD: 20:49 Time Seen by Midlevel: 20:49 Dictation: The patient is a 44-year-old male who presents to the emergency department with complaints of chest pain and shortness of breath, palpitations onset two days ago patient also reported left arm numbness and numbness around his mouth that has been going on for a week or two. Reports that today patient gotten occipital headache. Denies any nausea or vomiting. Denies any stress or event. Denies any cough or upper respiratory symptoms. Allergies: Coded Allergies: No Known Drug Allergies (Unverified Allergy, Unknown, 02/20/21) Home Meds Active Scripts Pantoprazole Sodium (Protonix) 40 Mg Ectab, 1 TAB PO DAILY for 30 Days, #30 TAB 2 Refills Prov:RU GALLAGHER MD 01/11/24 Sucralfate (Carafate) 1 Gram Tablet, 1 TAB PO QID for 30 Days, #120 TAB 0 Refills Prov:RU GALLAGHER MD 01/11/24 Cyclobenzaprine HCl (Cyclobenzaprine HCl) 10 Mg Tablet, 10 MG PO TIDP PRN for PAIN, #30 TAB Prov:ASHA AVERY MD 03/31/23 Meloxicam, Submicronized (Meloxicam) 10 Mg Capsule, 10 MG PO DAILY, #30 CAP Prov:ASHA AVERY MD 03/31/23 Famotidine (Famotidine) 20 Mg Tablet, 20 MG PO DAILY, #30 TAB Prov:GHULAM ALVA NP 02/23/21 Metoprolol Tartrate (Lopressor) 25 Mg Tab, 12.5 MG PO BID, #60 TAB Prov:GHULAM ALVA NP 02/23/21 Atorvastatin Calcium (Atorvastatin Calcium) 20 Mg Tablet, 20 MG PO HS, #60 TAB Prov:GHULAM ALVA NP 02/23/21 Aspirin (ASPIRIN 81 MG ECTAB) 81 Mg Ectab, 81 MG PO DAILY, #14 TAB.EC Prov:GHULAM ALVA NP 02/23/21 Past Medical History Past Medical History: Other Additional Past Medical Hx: HX OF RA Surgical History: None Social History: Negative RN Note Reviewed/Agreed w/PFSH: Yes Review of System Dictation Constitutional: Negative for fever,chills, and weight loss Eyes: Negative for injury, pain,redness, and discharge ENT: Negative for injury,pain or swelling Cardiovascular: Negative for edema positive for shortness of breath, palpitations Respiratory: Negative for shortness of breath, cough, and wheezing, Abdomen/GI: Negative for abdominal pain, nausea, vomiting, diarrhea, and constipation Back: Negative for injury and pain : Negative for injury, bleeding and discharge MS/Extremity: Negative for injury and deformity Skin: Negative for rash, and discoloration Neuro: Negative for weakness, numbness, tingling, and seizure positive for left arm numbness, headache Psych: Negative for suicide ideation, homicidal ideation, and hallucinations Initial Vital Sign VS Vital Signs Date Time Temp Pulse Resp B/P (MAP) Pulse Ox O2 Delivery O2 Flow Rate FiO2 10/03/24 20:49 98.8 106 20 144/92 97 Room Air 10/03/24 21:50 0 21 Physical Exam Dictation Vital Signs reviewed General Appearance: Alert, oriented x 3, no acute distress, well developed, nourished. Head and Face: non-traumatic. Eyes: PERRL, pink conjunctivas, eyelid no trauma, anterior chamber with arcus senilis. Ears: Pinnas intact and no signs of trauma or erythema ear canals clear and no discharge TM no erythema Nose: No discharge, no bleeding. Oropharynx: Mouth normal, tongue pink. pharynx clear,no erythema, tonsils no exudates, no abscesses noted, mucous membrane moist Neck: Supple, non-tender, no thyromegaly, no masses, no JVD, no bruits Breast:Deferred Chest:No tenderness, no crepitus, no paradoxical movement, no retractions Lungs:Clear, well-ventilated, symmetric, no rales, no wheezing, no rhonchi, no stridor, good breath sounds bilaterally Heart: Regular rate, regular rhythm, no murmur, no gallops Vascular: no peripheral edema, Abdomen: Soft, positive bowel sounds, nondistended, no guarding, nontender, no rebound, no masses no hepatomegaly, no splenomegaly, no Saavedra's sign, no hernias. Rectal: Deferred Genital: Deferred Neurological: Normal speech, motor function intact, sensory function intact , upper extremities equal in strength, lower extremities equal in strength Musculoskeletal: Neck nontender, full range of motion, back nontender, full range of motion, Extremities: nontender, full range of motion Skin: Color pink, dry, no turgor, no rash, no lacerations, no abrasions, no contusions. Lymphatic: Deferred Results (Laboratory/Radiology) Laboratory/Radiology Laboratory Tests Test 10/03/24 21:42 10/03/24 22:48 White Blood Count 11.1 K/uL (4.8-10.8) H Red Blood Count 4.91 MIL/uL (4.50-6.20) Hemoglobin 15.0 g/dL (14.0-18.0) Hematocrit 43.6 % (42-54) Mean Corpuscular Volume 88.8 fL (79-99) Mean Corpuscular Hemoglobin 30.5 pg (27.0-33.0) Mean Corpuscular Hemoglobin Concent 34.4 g/dL (32.0-36.0) Red Cell Distribution Width 14.0 % (11.0-15.5) Platelet Count 280 K/uL (130-400) Mean Platelet Volume 10.3 fL (7.5-10.5) Immature Granulocyte % (Auto) 0.2 % (0-1) Neutrophils (%) (Auto) 83.0 % (40.0-77.0) H Lymphocytes (%) (Auto) 11.1 % (21.0-51.0) L Monocytes (%) (Auto) 5.6 % (3.0-13.0) Eosinophils (%) (Auto) 0.0 % (0.0-8.0) Basophils (%) (Auto) 0.1 % (0.0-5.0) Neutrophils # (Auto) 9.2 K/uL (1.8-7.7) H Lymphocytes # (Auto) 1.2 K/uL (1.0-4.8) Monocytes # (Auto) 0.6 K/uL (0.1-1.0) Eosinophils # (Auto) 0.00 K/uL (0.00-0.70) Basophils # (Auto) 0.01 K/uL (0.00-0.20) Absolute Immature Granulocyte (auto 0.02 K/uL (0-1) Nucleated Red Blood Cells 0.0 % (0.0-0.19) Sodium Level 141 mmol/L (136-145) Potassium Level 3.8 mmol/L (3.5-5.1) Chloride Level 105 mmol/L (101-111) Carbon Dioxide Level 25 mmol/L (21-32) Blood Urea Nitrogen 11 mg/dL (7-18) Creatinine 1.0 mg/dL (0.5-1.3) Glomerular Filtration Rate Calc 96 mL/min (>90) Random Glucose 105 mg/dL (70-105) Total Calcium 9.1 mg/dL (8.5-10.1) Magnesium Level 1.90 mg/dL (1.80-2.40) Total Creatine Kinase 393 U/L (21-232) #H Troponin I High Sensitivity 54 ng/L (4-75) Urine Color LIGHT-YELLOW (YELLOW) Urine Appearance CLEAR (CLEAR) Urine pH 5.5 (5.0-8.0) Urine Specific [place] 1.030 (1.001-1.031) Urine Protein NEGATIVE mg/dL (NEGATIVE) Urine Glucose (UA) NEGATIVE mg/dL (NEGATIVE) Urine Ketones 40 mg/dL (NEGATIVE) H Urine Occult Blood NEGATIVE (NEGATIVE) Urine Nitrate NEGATIVE (NEGATIVE) Urine Bilirubin NEGATIVE mg/dL (NEGATIVE) Urine Urobilinogen 0.2 mg/dL (0.2-1.0) Urine Leukocyte Esterase NEGATIVE [place]/uL Urine RBC 0-1 /HPF (0-1) Urine WBC 0-1 /HPF (0-1) Urine Bacteria None /HPF (None Seen) Urine Opiates Screen NEGATIVE (NEGATIVE) Urine Barbiturates Screen NEGATIVE (NEGATIVE) Urine Phencyclidine Screen NEGATIVE (NEGATIVE) Urine Amphetamines Screen NEGATIVE (NEGATIVE) Urine Benzodiazepines Screen NEGATIVE (NEGATIVE) Urine Cocaine Screen NEGATIVE (NEGATIVE) Urine Marijuana (THC) Screen POSITIVE (NEGATIVE) H REASON: headache, numbness ORDERING PHYSICIAN: DAHIANA VASQUEZ PROCEDURE: HEAD WO - CT HEAD/BRAIN W/O CONTRAST EXAM: Non-contrast CT examination of the Brain CLINICAL HISTORY: Headache, numbness. TECHNIQUE: Thin collimated axial CT images of the brain were obtained, with sagittal and coronal reformatted images also submitted. CT scan done according to ALARA (As Low as Reasonably Achievable). CONTRAST USED: None. COMPARISON: Prior CT brain dated 02/21/21. FINDINGS: No acute intracranial abnormality is present. No acute cortical infarction, hemorrhage, mass, or mass effect. No hydrocephalus or abnormal extra-axial fluid collections. The posterior fossa is unremarkable. The skull base and calvarium are intact. The included portions of the paranasal sinuses and mastoid air cells are clear. IMPRESSION: No acute intracranial abnormality is present. No significant interval change. /[place] REASON: cp ORDERING PHYSICIAN: DAHIANA VASQUEZ PROCEDURE: CXR1VW - CHEST 1VW EXAM: CR Chest, 1 View. CLINICAL HISTORY: cp COMPARISON: None provided. FINDINGS: LUNGS: The lungs show no infiltrate or other acute finding. PLEURAL SPACES: No evidence of pleural effusion or pneumothorax. MEDIASTINUM: Cardiac size and mediastinal contours within normal limits. BONES: No acute osseous abnormality. IMPRESSION: No acute cardiopulmonary pathology is evident. /[place] Labs Reviewed?: Yes EKG: (+) rhythm (Sinus rhythm) EKG Comment: Date:10/03/2024 Time:2114 Ventricular rate:98 SC interval:176 QRS duration:87 QT/QTc:335/427 EKG interpretation: Sinus rhythm Reviewed by ED Attending no STEMI ED Course ED Course Orders Procedure Category Date Status Time Cbc With Differential LAB 10/03/24 Complete 21:06 Chest 1vw RAD 10/03/24 Resulted 21:06 12 Lead Ekg Tracing- EKG 10/03/24 Logged Technical 21:06 0.9%Nacl 1000ml (Ns PHA 10/03/24 Complete 1000ml) 21:30 Magnesium LAB 10/03/24 Complete 21:06 Creatine Kinase, Total LAB 10/03/24 Complete 21:06 Troponin I High LAB 10/03/24 Complete Sensitivity 21:06 Urinalysis Profile LAB 10/03/24 Complete 21:06 Basic Metabolic Panel LAB 10/03/24 Complete 21:06 Drug Screen Urine LAB 10/03/24 Complete 21:06 Pantoprazole 40mg Inj PHA 10/03/24 Complete (Protonix 40mg Inj 21:30 Ct Head/Brain W/O CT 10/03/24 Resulted Contrast 21:09 Acetaminophen 500mg PHA 10/03/24 Complete Tab (Tylenol 500mg T 21:30 Lidocaine Hcl 2% PHA 10/03/24 Complete Viscous (Lidocaine Hcl 22:30 Dicyclomine Hcl PHA 10/03/24 Complete (Bentyl 10mg/5ml 22:30 Mag/Alum/Simeth 30ml PHA 10/03/24 Complete (Maalox Plus 30ml) 22:30 Current Medications Medications (Trade) Dose Ordered Sig/Paresh Route PRN Reason Start Time Stop Time Status Last Admin Dose Admin Acetaminophen (TYLenol 500MG TAB) 1,000 mg ONCE ONCE PO 10/03/24 21:30 10/03/24 21:31 DC 10/03/24 21:26 Al Hydroxide/Mg Hydroxide (MAALox PLUS 30ML) 30 ml ONCE ONCE PO 10/03/24 22:30 10/03/24 22:31 DC 10/03/24 22:17 Dicyclomine HCl (Bentyl 10mg/5ml Syrup) 10 mg ONCE ONCE PO 10/03/24 22:30 10/03/24 22:31 DC 10/03/24 22:17 Lidocaine HCl (Lidocaine HCl 2% Viscous) 10 ml ONCE ONCE PO 10/03/24 22:30 10/03/24 22:31 DC 10/03/24 22:17 Pantoprazole Sodium (PROTonix 40MG INJ) 40 mg ONCE ONCE IVP 10/03/24 21:30 10/03/24 21:31 DC 10/03/24 21:26 Sodium Chloride 1,000 ml @ 0 mls/hr ONCE ONCE IV 10/03/24 21:30 10/03/24 21:31 DC 10/03/24 21:25 Vital Signs Date Time Temp Pulse Resp B/P (MAP) Pulse Ox O2 Delivery O2 Flow Rate FiO2 10/03/24 21:50 98.4 92 18 132/66 99 Room Air* 0 21 10/03/24 20:49 98.8 106 20 144/92 97 Room Air HEART Score Response (Comments) Value History: Low suspicion (0) 0 EKG: Normal 0 Age: < 45yrs (0) 0 Risk Factors: No known risk factors (0) 0 Initial Troponin: Normal limit (0) 0 Total 0 Medical Decision Making MDM The patient is a 44-year-old male who presents to the emergency department with complaints of chest pain and shortness of breath, palpitations onset two days ago patient also reported left arm numbness and numbness around his mouth that has been going on for a week or two. Reports that today patient gotten occipital headache. Denies any nausea or vomiting. Denies any stress or event. Denies any cough or upper respiratory symptoms. CBC showed mild leukocytosis, no anemia, chemistry showed no electrolyte imbalance, normal renal function, negative troponin, urinalysis positive for marijuana. CT head showed no acute pathology. X-ray showed no acute pathology. On physical exam patient is in no acute distress. Neurologically intact. Low risk for cardiac etiology. Patient has has had these complaints multiple times on previous visits including the numbness. Patient instructed to follow up with PCP. Patient reports that he will be leaving out of town but reports that he a lready scheduled a PCP appointment in [place] where he is moving. Differential diagnosis: ACS, anxiety, intracerebral hemorrhage, Need for hospitalization: Patient does not meet criteria for hospitalization. There are no social concerns with this patient. DX & DISP Disposition: Discharge Departure Impression: Primary Impression: Chest pain with low risk for cardiac etiology Additional Impressions: Headache, Marijuana abuse Condition: Stable Scripts Meloxicam (Meloxicam) 15 Mg Tablet 1 TAB PO DAILY PRN for PAIN for 30 Days, #30 TAB 0 Refills Prov: DAHIANA VASQUEZ COMMISSARY ASSISTANT 10/04/24 Famotidine (Famotidine) 10 Mg Tablet 1 TAB PO DAILY for 30 Days, #30 TAB 0 Refills Prov: DAHIANA VASQUEZ COMMISSARY ASSISTANT 10/04/24 Additional Instructions: Please follow up with your primary doctor in 1-2 days. Your labs in your CT sca n were unremarkable. Your chest x-ray was also normal. If anything worsens please return to ER. FOLLOW-UP WITH PRIMARY CARE PROVIDER IN 1 TO 2 DAYS. TAKE MEDICATIONS DIRECTED HERE IN THE EMERGENCY ROOM. OKAY TO CONTINUE HOME MEDICATIONS UNLESS OTHERWISE DISCUSSED DURING YOUR VISIT IN THE EMERGENCY ROOM TODAY. RETURN TO YOUR NEAREST EMERGENCY ROOM IF SYMPTOMS WORSEN OR IF THERE IS NO IMPROVEMENT. CALL 911 IF YOU NEED IMMEDIATE ASSISTANCE. TAKE TYLENOL [id number] NEEDED AND IF NO CONTRAINDICATIONS ARE PRESENT. INCREASE ORAL HYDRATION. A WOUND CULTURE OR URINE CULTURE WAS ORDERED HERE IN THE EMERGENCY ROOM DEPARTMENT PLEASE FOLLOW-UP WITH PRIMARY CARE PROVIDER AND ADVISE THEM TO GET REPEAT PORTS FROM OUR FACILITY. IF YOU HAD ANY BRENDA WRAP/SPLINTS THAT WERE APPLIED HERE, PLEASE DO NOT REMOVE THEM UNTIL YOU SEE YOUR PRIMARY CARE OR SPECIALTY. Referrals: MIGUEL ROJAS (PCP) Time of Disposition: 23:59 I have reviewed the case, and I agree with, Diagnosis and Plan DAHIANA VASQUEZ Oct 03, 2024 21:28
[2024-10-03 21:57] LABS: IMMATURE GRANULOCYTE ABSOLUTE 0.02 K/uL (0-1); NUCLEATED RED BLOOD CELLS 0.0 % (0.0-0.19); PLATELET COUNT (AUTO) 280 K/uL (130-400); RED BLOOD CELL COUNT(AUTO) 4.91 MIL/uL (4.50-6.20); RED CELL DISTRIBUTION WIDTH 14.0 % (11.0-15.5); WHITE BLOOD COUNT (AUTO) 11.1 K/uL (4.8-10.8)
[2024-10-03 22:05] LABS: CREATININE 1.0 mg/dL (0.5-1.3); GLOMERULAR FILTR. RATE CALC 96.0 mL/min (>90); GLUCOSE,RANDOM 105.0 mg/dL (70-105); SODIUM SERUM 141.0 mmol/L (136-145); UREA NITROGEN, BLOOD 11.0 mg/dL (7-18)
[2024-10-03 22:15] LABS: CREATINE KINASE, TOTAL 393.0 U/L (21-232)
[2024-10-03] MEDS: DICYCLOMINE HCL 10 MG/5 ML ML PO ONE (22:17)
[2024-10-03] MEDS: MAG/ALUM/SIMETH 30 ML UDCUP PO ONE (22:17)
[2024-10-03] MEDS: LIDOCAINE HCL 2% VISCOUS 15 ML UDCUP PO ONE (22:17)
--- NOTE | 2024-10-03 22:49 | HMCIMG ---
EXAM: Non-contrast CT examination of the Brain CLINICAL HISTORY: Headache, numbness. TECHNIQUE: Thin collimated axial CT images of the brain were obtained, with sagittal and coronal reformatted images also submitted. CT scan done according to ALARA (As Low as Reasonably Achievable). CONTRAST USED: None. COMPARISON: Prior CT brain dated 02/21/21. FINDINGS: No acute intracranial abnormality is present. No acute cortical infarction, hemorrhage, mass, or mass effect. No hydrocephalus or abnormal extra-axial fluid collections. The posterior fossa is unremarkable. The skull base and calvarium are intact. The included portions of the paranasal sinuses and mastoid air cells are clear. IMPRESSION: No acute intracranial abnormality is present. No significant interval change. /[place]
--- NOTE | 2024-10-03 23:03 | HMCIMG ---
EXAM: CR Chest, 1 View. CLINICAL HISTORY: cp COMPARISON: None provided. FINDINGS: LUNGS: The lungs show no infiltrate or other acute finding. PLEURAL SPACES: No evidence of pleural effusion or pneumothorax. MEDIASTINUM: Cardiac size and mediastinal contours within normal limits. BONES: No acute osseous abnormality. IMPRESSION: No acute cardiopulmonary pathology is evident. /[place]
[2024-10-03 23:04] LABS: APPEARANCE,URINE CLEAR (CLEAR); GLUCOSE, URINE (UA) NEGATIVE (NEGATIVE); LEUKOCYTE ESTERASE ,URINE NEGATIVE Leu/uL (NEGATIVE); NITRATE,URINE NEGATIVE (NEGATIVE); OCCULT BLOOD,URINE NEGATIVE (NEGATIVE)
[2024-10-03 23:11] LABS: ADD UA MICROSCOPIC YES; AMPHET/METH SCREEN,URINE NEGATIVE (NEGATIVE); BARBITURATE SCREEN, URINE NEGATIVE (NEGATIVE); CANNABINOID SCREEN,URINE POSITIVE (NEGATIVE); COCAINE SCREEN,URINE NEGATIVE (NEGATIVE)
[2024-10-04] MEDS ORDERED: MELO-108 PO
[2024-10-04] MEDS ORDERED: FAMO-290 PO
[2024-10-04 00:14] VITALS: BP 128/55; PULSE 88; RESP 18; TEMP 98.4; O2SAT 98
--- NOTE | 2024-10-04 06:48 | EKG ---
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
== END 2024-10-04 00:11 | disposition home or self-care (01) ==
LOC: EDH 20:47
DX: R07.89 Other chest pain (principal); R51.9 Headache, unspecified; F12.10 Cannabis abuse, uncomplicated; Z79.1 Long term (current) use of non-steroidal anti-inflammatories (NSAID); Z79.82 Long term (current) use of aspirin; Z79.899 Other long term (current) drug therapy
CPT/HCPCS: 99284; 96374; 70450; 71045; 82550; 83735; 84484; 80048; 80305; 85025; 36415; 93005; 81001; J7030; J2470